=== PATIENT | female | born 1950 | race African-American/Black ===

== ENCOUNTER 2024-02-20 09:15 | Outpatient (CLI) | payer OTHER, MEDICAID | END 2024-02-20 09:16 | disposition home or self-care (01) | LOC: CSHRAD 09:15 | PROVIDERS: ATTEND Psychiatry & Neurology Neurology | DX: G93.89 Other specified disorders of brain (principal); G40.909 Epilepsy, unspecified, not intractable, without status epilepticus | CPT/HCPCS: 70553; 76377 ==

== ENCOUNTER 2024-03-07 09:41 | Outpatient (CLI) | payer OTHER, MEDICAID | END 2024-03-07 09:42 | disposition home or self-care (01) | LOC: CSHMAMMO 09:41 | PROVIDERS: ATTEND Family Medicine | DX: Z13.820 Encounter for screening for osteoporosis (principal); N95.9 Unspecified menopausal and perimenopausal disorder; M85.89 Other specified disorders of bone density and structure, multiple sites | CPT/HCPCS: 77080 ==

== ENCOUNTER 2024-09-17 10:58 | Outpatient (CLI) | payer OTHER, MEDICAID | END 2024-09-17 10:59 | disposition home or self-care (01) | LOC: CSHMAMMO 10:58 | PROVIDERS: ATTEND Family Medicine | DX: Z12.31 Encounter for screening mammogram for malignant neoplasm of breast (principal) | CPT/HCPCS: 77063; 77067 ==

== ENCOUNTER 2024-10-11 14:37 | Emergency (ER) | payer OTHER, MEDICAID ==
[~2024-10-11 14:37] MED LIST: Iopamidol 300 61% 100 ML VIAL FS ONE
[2024-10-11 17:03] LABS: #Basophils 0.04 10x3/uL (0.0-0.2); #Eosinophils Less than 0.03 10x3/uL (0.0-0.5); #Monocytes 0.54 10x3/uL (0.0-1.1); #Neutrophils 7.23 10x3/uL (1.5-8.4); %Basophils 0.4 % (0.0-2.0); %Lymphocytes 18.5 % (18.0-47.0); %Monocytes 5.6 % (0.0-10.0); %Neutrophils 75.2 % (40.0-75.0); Hematocrit 37.2 % (34.9-44.5); Hemoglobin 12.3 g/dL (12.0-15.5); Mean Corpuscular HGB CONC 33.1 g/dL (32.0-36.0); Mean Corpuscular Hemoglobin 29.4 pg (27.0-33.0); Mean Platelet Volume 10.7 fL (7.4-10.4); Platelet Count 282 10x3/uL (150-450); RBC Distribution Width 14.5 % (11.5-14.5); Red Blood Cell (RBC) Count 4.18 10x6/uL (3.90-5.03); White Blood Cell (WBC) Count 9.62 10x3/uL (3.5-10.5)
[2024-10-11 17:04] LABS: Bilirubin Neg (Negative); Blood, Urine Negative (Negative); Clarity Clear (Clear); Glucose, Urine (Dipstick) Normal (Negative); Ketone, Urine Negative (Negative); Leukocyte Negative (Negative); Nitrite Negative (Negative); Protein, Urine (Dipstick) 15 mg/dl (Neg-Trace); Urobilinogen Normal mg/dL (Less than 2)
[2024-10-11 17:18] LABS: ALT (SGPT) 12 U/L (Less than 34); AST (SGOT) 31 U/L (11-34); Albumin 4.1 g/dL (3.1-4.5); Alkaline Phosphatase 169 U/L (40-110); Anion Gap 17 mmol/L (10-20); BUN (Urea Nitrogen) 15 mg/dL (9.8-20.1); Bilirubin, Total 0.3 mg/dL (0.3-1.2); Calc. Creatinine Clearance 0 mL/min (70-130); Calcium 9.4 mg/dL (7.8-10.44); Carbon Dioxide 20 mmol/L (23-31); Chloride 107 mmol/L (98-107); Estimated GFR 76; Globulin 3.8 g/dL (2.4-3.5); Glucose 111 mg/dL (83-110); Potassium 3.9 mmol/L (3.5-5.1); Protein, Total 7.9 g/dL (5.8-8.1); Sodium 140 mmol/L (136-145)
[2024-10-11 17:20] LABS: CAUTI Indications for Culture Pelvic or flank pain; RBC/HPF 0-3 HPF (0-3); Squamous Epithelial 0-3 HPF (0-3); WBC/HPF 0-3 HPF (0-3)
[2024-10-11 17:21] LABS: Bacteria/HPF 1+ HPF (None Seen); Transitional Epithelial 0-3 HPF (None Seen)
[2024-10-11 17:22] LABS: Urine Culture Reflex No No
== END 2024-10-11 18:35 | disposition home or self-care (01) ==
LOC: CSHERS 14:37
DX: R55 Syncope and collapse (principal); R56.9 Unspecified convulsions; E11.9 Type 2 diabetes mellitus without complications; I10 Essential (primary) hypertension
CPT/HCPCS: 70450; 74177; 80053; 81001; 83690; 85025; 93005

== ENCOUNTER 2025-03-20 15:52 | Inpatient (IN) | payer OTHER, MEDICAID ==
[2025-03-20 17:09] LABS: #Basophils 0.04 10x3/uL (0.0-0.2); #Eosinophils Less than 0.03 10x3/uL (0.0-0.5); #Monocytes 0.45 10x3/uL (0.0-1.1); #Neutrophils 4.67 10x3/uL (1.5-8.4); %Basophils 0.6 % (0.0-2.0); %Eosinophils 0.0 % (0.0-6.0); %Lymphocytes 27.9 % (18.0-47.0); %Monocytes 6.3 % (0.0-10.0); %Neutrophils 64.9 % (40.0-75.0); Hematocrit 36.9 % (34.9-44.5); Hemoglobin 13.0 g/dL (12.0-15.5); Mean Corpuscular Hemoglobin 29.7 pg (27.0-33.0); Mean Corpuscular Volume 84.2 fL (81.6-98.3); Platelet Count 272 10x3/uL (150-450); Red Blood Cell (RBC) Count 4.38 10x6/uL (3.90-5.03); White Blood Cell (WBC) Count 7.18 10x3/uL (3.5-10.5)
[2025-03-20 17:13] LABS: Actual Bicarbonate (HCO3v) 18.4 mEq/L (22-28); Analyzer IN Cardio CS ER; Base Excess -7.2 mEq/L (-2 - +2); Calcium, Ionized (venous) 1.14 mmol/L (1.16-1.32); Chloride (VBG) 98 mmol/L (98-106); Critical Notified Whom: treru; Hematocrit-VBG 41 % (36.0-47.0); Hemoglobin (Hb) 14.1 g/dL (11.7-16.1); Potassium (VBG) 4.24 mmol/L (3.70-5.30); Puncture Site Other Site; Sodium 135 mmol/L (133-146)
[2025-03-20 17:23] LABS: Glucose, Urine (Dipstick) >=1000 mg/dL (Negative); Leukocyte 100 (Negative); Protein, Urine (Dipstick) Negative (Neg-Trace); Specific Gravity, Urine 1.015 (1.005-1.030)
[2025-03-20 17:37] LABS: ALT (SGPT) 24 U/L (Less than 34); AST (SGOT) 35 U/L (11-34); Albumin 4.0 g/dL (3.1-4.5); Alkaline Phosphatase 176 U/L (40-110); Anion Gap 16 mmol/L (10-20); BUN (Urea Nitrogen) 19 mg/dL (9.8-20.1); Bilirubin, Total 0.2 mg/dL (0.3-1.2); Calc. Creatinine Clearance 0 mL/min (70-130); Calcium 8.7 mg/dL (7.8-10.44); Carbon Dioxide 22 mmol/L (23-31); Chloride 100 mmol/L (98-107); Globulin 4.2 g/dL (2.4-3.5); Lipase 30 U/L (8-78); Magnesium 1.9 mg/dL (1.6-2.6); Potassium 4.7 mmol/L (3.5-5.1); Sodium 133 mmol/L (136-145)
[2025-03-20 17:37] LABS: CAUTI Indications for Culture Pelvic or flank pain; RBC/HPF 0-3 HPF (0-3)
[2025-03-20 17:39] LABS: Bacteria/HPF Rare-Few HPF (None Seen)
[2025-03-20 17:41] LABS: Urine Culture Reflex Yes Yes
[2025-03-20 17:43] LABS: Troponin I Less than 0.010 ng/mL (< 0.028)
[2025-03-20 17:48] LABS: Glucose 456 mg/dL (83-110)
[2025-03-20] MEDS ORDERED: Ondansetron PF 4 MG/2 ML Vial ONE (17:53)
[2025-03-20] MEDS ORDERED: cefTRIAXone (ROCEPHIN) 2 GM VIAL ONE (17:53)
[2025-03-20] MEDS ORDERED: Electrolyte Replacement Protocol 1 EACH FS PRN (20:05)
[2025-03-20] MEDS ORDERED: Glucagon 1 MG/ML KIT IM PRN (20:13)
[2025-03-20] MEDS ORDERED: Dextrose 50% Abboject 50 ML SYRINGE SLOW IVP PRN (20:13)
[2025-03-20 22:24] VITALS: BMI 34.8
[2025-03-20] MEDS: Famotidine/PF 20 mg/2ml Vial SLOW IVP SCH (22:39)
[2025-03-20] MEDS: Magnesium 2 GM/50 ML(in water) 2 GM in Premix 1 BAG IVPB SCH (22:39)
[2025-03-20] MEDS: Famotidine 20 MG TAB PO SCH (22:39)
[2025-03-21] MEDS: Acetaminophen 325 MG TAB PO PRN (00:34)
[2025-03-21 05:11] LABS: #Basophils 0.03 10x3/uL (0.0-0.2); #Eosinophils Less than 0.03 10x3/uL (0.0-0.5); #Monocytes 0.48 10x3/uL (0.0-1.1); #Neutrophils 3.14 10x3/uL (1.5-8.4); %Basophils 0.6 % (0.0-2.0); %Eosinophils 0.0 % (0.0-6.0); %Lymphocytes 31.3 % (18.0-47.0); %Monocytes 9.0 % (0.0-10.0); %Neutrophils 58.7 % (40.0-75.0); Hematocrit 32.3 % (34.9-44.5); Hemoglobin 10.9 g/dL (12.0-15.5); Mean Corpuscular Hemoglobin 28.3 pg (27.0-33.0); Mean Corpuscular Volume 83.9 fL (81.6-98.3); Platelet Count 214 10x3/uL (150-450); Red Blood Cell (RBC) Count 3.85 10x6/uL (3.90-5.03); White Blood Cell (WBC) Count 5.34 10x3/uL (3.5-10.5)
[2025-03-21 05:28] LABS: ALT (SGPT) 17 U/L (Less than 34); AST (SGOT) 18 U/L (11-34); Albumin 3.2 g/dL (3.1-4.5); Alkaline Phosphatase 135 U/L (40-110); Anion Gap 10 mmol/L (10-20); BUN (Urea Nitrogen) 11 mg/dL (9.8-20.1); Bilirubin, Total 0.3 mg/dL (0.3-1.2); Calc. Creatinine Clearance 126 mL/min (70-130); Calcium 7.9 mg/dL (7.8-10.44); Carbon Dioxide 23 mmol/L (23-31); Chloride 106 mmol/L (98-107); Globulin 3.1 g/dL (2.4-3.5); Glucose 291 mg/dL (83-110); Magnesium 2.0 mg/dL (1.6-2.6); Potassium 3.6 mmol/L (3.5-5.1); Sodium 135 mmol/L (136-145)
[2025-03-21] MEDS: glipiZIDE 5 MG TAB PO SCH (06:40)
[2025-03-21] MEDS: Magnesium 2 GM/50 ML(in water) 2 GM in Premix 1 BAG IVPB SCH (09:13)
[2025-03-21] MEDS: Famotidine 20 MG TAB PO SCH (09:13)
[2025-03-21] MEDS: Enoxaparin 40 MG (0.4 mL) SYRINGE SC SCH (09:13)
[2025-03-21] MEDS: Lantus 1000 UNITS/10 ML VIAL SC SCH (14:28)
[2025-03-21] MEDS: cefTRIAXone\\ROCEPHIN 1 GM in Sodium Chloride 0.9% 100 ML IVPB SCH (17:43)
[2025-03-21] MEDS: Phenytoin 100 MG (4 mL) UDCUP PO SCH (18:47)
[2025-03-21] MEDS: Phenytoin Extended Release 100 MG CAP PO SCH (20:08)
[2025-03-22 04:12] LABS: #Basophils 0.04 10x3/uL (0.0-0.2); #Eosinophils Less than 0.03 10x3/uL (0.0-0.5); #Monocytes 0.46 10x3/uL (0.0-1.1); #Neutrophils 2.49 10x3/uL (1.5-8.4); %Basophils 0.9 % (0.0-2.0); %Eosinophils 0.0 % (0.0-6.0); %Lymphocytes 35.5 % (18.0-47.0); %Monocytes 9.9 % (0.0-10.0); %Neutrophils 53.5 % (40.0-75.0); Hematocrit 33.3 % (34.9-44.5); Hemoglobin 11.4 g/dL (12.0-15.5); Mean Corpuscular Hemoglobin 28.8 pg (27.0-33.0); Mean Corpuscular Volume 84.1 fL (81.6-98.3); Platelet Count 220 10x3/uL (150-450); Red Blood Cell (RBC) Count 3.96 10x6/uL (3.90-5.03); White Blood Cell (WBC) Count 4.65 10x3/uL (3.5-10.5)
[2025-03-22 04:29] LABS: Anion Gap 12 mmol/L (10-20); BUN (Urea Nitrogen) 9 mg/dL (9.8-20.1); Calc. Creatinine Clearance 120 mL/min (70-130); Calcium 8.5 mg/dL (7.8-10.44); Carbon Dioxide 25 mmol/L (23-31); Chloride 105 mmol/L (98-107); Glucose 184 mg/dL (83-110); Magnesium 1.7 mg/dL (1.6-2.6); Potassium 3.8 mmol/L (3.5-5.1); Sodium 138 mmol/L (136-145)
[2025-03-22] MEDS: Lantus 1000 UNITS/10 ML VIAL SC SCH (08:42)
[2025-03-22] MEDS: glipiZIDE 5 MG TAB PO SCH (08:44)
[2025-03-22] MEDS: Magnesium 2 GM/50 ML(in water) 2 GM in Premix 1 BAG IVPB SCH (08:49)
[2025-03-22] MEDS ORDERED: Phenytoin 100 MG (4 mL) UDCUP PO SCH (09:00)
[2025-03-22] MEDS: OLANZapine 2.5 MG TAB PO SCH (14:24)
[2025-03-22] MEDS: diphenhydrAMINE 50 MG/ML VIAL IVP SCH (14:26)
[2025-03-22] MEDS: Citalopram 20 MG TAB PO SCH (21:11)
[2025-03-23 04:47] LABS: #Basophils 0.05 10x3/uL (0.0-0.2); #Eosinophils Less than 0.03 10x3/uL (0.0-0.5); #Monocytes 0.53 10x3/uL (0.0-1.1); #Neutrophils 2.94 10x3/uL (1.5-8.4); %Basophils 0.9 % (0.0-2.0); %Eosinophils 0.2 % (0.0-6.0); %Lymphocytes 37.5 % (18.0-47.0); %Monocytes 9.3 % (0.0-10.0); %Neutrophils 51.7 % (40.0-75.0); Hematocrit 35.5 % (34.9-44.5); Hemoglobin 12.3 g/dL (12.0-15.5); Mean Corpuscular Hemoglobin 29.7 pg (27.0-33.0); Mean Corpuscular Volume 85.7 fL (81.6-98.3); Platelet Count 232 10x3/uL (150-450); Red Blood Cell (RBC) Count 4.14 10x6/uL (3.90-5.03); White Blood Cell (WBC) Count 5.68 10x3/uL (3.5-10.5)
[2025-03-23 05:07] LABS: Anion Gap 12 mmol/L (10-20); BUN (Urea Nitrogen) 9 mg/dL (9.8-20.1); Calc. Creatinine Clearance 123 mL/min (70-130); Calcium 8.5 mg/dL (7.8-10.44); Carbon Dioxide 25 mmol/L (23-31); Chloride 104 mmol/L (98-107); Glucose 266 mg/dL (83-110); Magnesium 1.9 mg/dL (1.6-2.6); Potassium 3.6 mmol/L (3.5-5.1); Sodium 137 mmol/L (136-145)
[2025-03-23] MEDS: Magnesium 2 GM/50 ML(in water) 2 GM in Premix 1 BAG IVPB SCH (09:04)
[2025-03-23] MEDS: Calcium Carbonate 500 MG ChewTAB PO PRN (21:50)
[2025-03-24 04:38] LABS: #Basophils 0.04 10x3/uL (0.0-0.2); #Eosinophils Less than 0.03 10x3/uL (0.0-0.5); #Monocytes 0.46 10x3/uL (0.0-1.1); #Neutrophils 2.83 10x3/uL (1.5-8.4); %Basophils 0.8 % (0.0-2.0); %Eosinophils 0.0 % (0.0-6.0); %Lymphocytes 34.8 % (18.0-47.0); %Monocytes 8.9 % (0.0-10.0); %Neutrophils 54.9 % (40.0-75.0); Hematocrit 34.3 % (34.9-44.5); Hemoglobin 11.5 g/dL (12.0-15.5); Mean Corpuscular Hemoglobin 28.6 pg (27.0-33.0); Mean Corpuscular Volume 85.3 fL (81.6-98.3); Platelet Count 224 10x3/uL (150-450); Red Blood Cell (RBC) Count 4.02 10x6/uL (3.90-5.03); White Blood Cell (WBC) Count 5.15 10x3/uL (3.5-10.5)
[2025-03-24 04:53] LABS: Anion Gap 12 mmol/L (10-20); BUN (Urea Nitrogen) 11 mg/dL (9.8-20.1); Calc. Creatinine Clearance 125 mL/min (70-130); Calcium 8.6 mg/dL (7.8-10.44); Carbon Dioxide 26 mmol/L (23-31); Chloride 105 mmol/L (98-107); Glucose 196 mg/dL (83-110); Magnesium 1.8 mg/dL (1.6-2.6); Potassium 3.8 mmol/L (3.5-5.1); Sodium 139 mmol/L (136-145)
[2025-03-24] MEDS: Magnesium 2 GM/50 ML(in water) 2 GM in Premix 1 BAG IVPB SCH (09:10)
[2025-03-24] MEDS: Divalproex Sodium 250 MG ER.TAB PO SCH (21:07)
[2025-03-25 05:00] LABS: #Basophils Less than 0.03 10x3/uL (0.0-0.2); #Eosinophils Less than 0.03 10x3/uL (0.0-0.5); #Monocytes 0.59 10x3/uL (0.0-1.1); #Neutrophils 3.58 10x3/uL (1.5-8.4); %Basophils 0.3 % (0.0-2.0); %Eosinophils 0.0 % (0.0-6.0); %Lymphocytes 28.6 % (18.0-47.0); %Monocytes 10.0 % (0.0-10.0); %Neutrophils 60.8 % (40.0-75.0); Hematocrit 34.9 % (34.9-44.5); Hemoglobin 11.6 g/dL (12.0-15.5); Mean Corpuscular Hemoglobin 28.6 pg (27.0-33.0); Mean Corpuscular Volume 86.2 fL (81.6-98.3); Platelet Count 235 10x3/uL (150-450); Red Blood Cell (RBC) Count 4.05 10x6/uL (3.90-5.03); White Blood Cell (WBC) Count 5.90 10x3/uL (3.5-10.5)
[2025-03-25 05:16] LABS: Anion Gap 13 mmol/L (10-20); BUN (Urea Nitrogen) 10 mg/dL (9.8-20.1); Calc. Creatinine Clearance 121 mL/min (70-130); Calcium 8.7 mg/dL (7.8-10.44); Carbon Dioxide 24 mmol/L (23-31); Chloride 104 mmol/L (98-107); Glucose 273 mg/dL (83-110); Magnesium 1.8 mg/dL (1.6-2.6); Potassium 4.0 mmol/L (3.5-5.1); Sodium 137 mmol/L (136-145)
[2025-03-25] MEDS: Magnesium 2 GM/50 ML(in water) 2 GM in Premix 1 BAG IVPB SCH (09:04)
[2025-03-25] MEDS: Lantus 1000 UNITS/10 ML VIAL SC SCH (09:13)
[2025-03-25 12:28] VITALS: TEMP 98.8
[2025-03-25 12:52] VITALS: BP 141/78
== END 2025-03-25 14:00 | disposition home or self-care (01) | DRG 637 ==
LOC: CSHERS 15:52 → CSHTELE 19:40 → OBSVTOIN 03-21 12:54
PROVIDERS: ADMIT Internal Medicine; ATTEND Hospitalist
DX: E11.65 Type 2 diabetes mellitus with hyperglycemia (principal); G93.41 Metabolic encephalopathy; N39.0 Urinary tract infection, site not specified; I10 Essential (primary) hypertension; G40.909 Epilepsy, unspecified, not intractable, without status epilepticus; F25.9 Schizoaffective disorder, unspecified; R19.7 Diarrhea, unspecified; E03.9 Hypothyroidism, unspecified; E86.0 Dehydration; Z90.710 Acquired absence of both cervix and uterus; Z98.890 Other specified postprocedural states; Z79.4 Long term (current) use of insulin; Z79.84 Long term (current) use of oral hypoglycemic drugs
CPT/HCPCS: 36415; 36416; 51798; 70450; 80048; 80053; 80185; 81001; 82010; 82805; 83036; 83690; 83735; 84100; 84484; 85025; 87040; 87086; 93005; 94760; 96361; 96372; 96374; 96375; 96376; G0378; J0696; J1200; J1308; J1650; J1815; J2060; J2405; J3475; J7030; Q0169

== ENCOUNTER 2025-03-27 14:07 | Emergency (ER) | payer OTHER, MEDICAID ==
[2025-03-27 15:09] LABS: #Basophils Less than 0.03 10x3/uL (0.0-0.2); #Eosinophils Less than 0.03 10x3/uL (0.0-0.5); #Monocytes 0.46 10x3/uL (0.0-1.1); #Neutrophils 3.65 10x3/uL (1.5-8.4); %Basophils 0.4 % (0.0-2.0); %Eosinophils 0.0 % (0.0-6.0); %Lymphocytes 25.0 % (18.0-47.0); %Monocytes 8.3 % (0.0-10.0); %Neutrophils 65.9 % (40.0-75.0); Hematocrit 36.8 % (34.9-44.5); Hemoglobin 12.2 g/dL (12.0-15.5); Mean Corpuscular Hemoglobin 28.8 pg (27.0-33.0); Mean Corpuscular Volume 86.8 fL (81.6-98.3); Platelet Count 293 10x3/uL (150-450); Red Blood Cell (RBC) Count 4.24 10x6/uL (3.90-5.03); White Blood Cell (WBC) Count 5.53 10x3/uL (3.5-10.5)
[2025-03-27 15:14] LABS: Actual Bicarbonate (HCO3v) 26.5 mEq/L (22-28); Analyzer IN Cardio CS ER; Base Excess 0.8 mEq/L (-2 - +2); Calcium, Ionized (venous) 1.17 mmol/L (1.16-1.32); Chloride (VBG) 100 mmol/L (98-106); Critical Notified By: S. Buerger, RRT; Hematocrit-VBG 39 % (36.0-47.0); Hemoglobin (Hb) 13.4 g/dL (11.7-16.1); Potassium (VBG) 4.21 mmol/L (3.70-5.30); Puncture Site Other Site; RapidComm Collect By lab; Sodium 137 mmol/L (133-146)
[2025-03-27 15:26] LABS: ALT (SGPT) 33 U/L (Less than 34); AST (SGOT) 31 U/L (11-34); Albumin 4.0 g/dL (3.1-4.5); Alkaline Phosphatase 153 U/L (40-110); Anion Gap 14 mmol/L (10-20); BUN (Urea Nitrogen) 13 mg/dL (9.8-20.1); Bilirubin, Total 0.5 mg/dL (0.3-1.2); Calc. Creatinine Clearance 0 mL/min (70-130); Calcium 9.3 mg/dL (7.8-10.44); Carbon Dioxide 26 mmol/L (23-31); Chloride 101 mmol/L (98-107); Globulin 3.8 g/dL (2.4-3.5); Glucose 313 mg/dL (83-110); Lipase 11 U/L (8-78); Magnesium 1.8 mg/dL (1.6-2.6); Potassium 4.3 mmol/L (3.5-5.1); Sodium 137 mmol/L (136-145)
== END 2025-03-27 17:00 | disposition home or self-care (01) ==
LOC: CSHERS 14:07
DX: E11.65 Type 2 diabetes mellitus with hyperglycemia (principal); I10 Essential (primary) hypertension; E03.9 Hypothyroidism, unspecified; E78.5 Hyperlipidemia, unspecified; G40.409 Other generalized epilepsy and epileptic syndromes, not intractable, without status epilepticus
CPT/HCPCS: 80053; 82010; 82805; 82962; 83605; 83690; 83735; 85025; 99284; J1815; 36416